=== PATIENT | male | born 1975 | race Caucasian/White ===

== ENCOUNTER → 2023-05-18 | Outpatient (CLI) | payer BC ==
--- NOTE | 2023-05-18 13:46 | US ---
EXAMINATION TYPE: US scrotum with doppler. Grayscale and color Doppler Duplex imaging performed of angie olea scrotum. DATE OF EXAM: 05/18/2023 COMPARISON: NONE CLINICAL INDICATION: Male, 48 years old with history of N50.811 RIGHT TESTICULAR PAIN; Right side juanita n. Patient states he was lifting something heavy. No swelling. EXAM MEASUREMENTS: TESTICLES: Right Testicle: 4.9 x 4.5 x 3.3 cm Left Testicle: 5.6 x 4.6 x 3.5 cm EPIDIDYMIS HEAD: Right Epididymis: 0.9 x 1.0 x 0.9 cm Left Epididymis: 0.8 x 0.9 x 0.8 cm Doppler performed to assess for testicular vascularity; good bilateral color flow and waveforms are s een. There is no evidence of testicular torsion. Presence of hydroceles: no Presence of varicoceles: left lateral IMPRESSION: Small left lateral hydrocele
== END | disposition home or self-care (01) ==
LOC: RADUSWWP 12:05
PROVIDERS: ATTEND Family Medicine
DX: N43.3 Hydrocele, unspecified (principal); N50.811 Right testicular pain
CPT/HCPCS: 76870; 93975

== ENCOUNTER → 2024-04-06 | Outpatient (CLI) | payer BC ==
--- NOTE | 2024-04-08 10:43 | CT ---
EXAMINATION TYPE: CT abdomen pelvis wo con DATE OF EXAM: 04/06/2024 COMPARISON: 05/18/23 ultrasound HISTORY: 48-year-old male abdominal pain, R10.84, Right flank pain x3 weeks. No priors CT DLP: 1225 mGycm. Automated exposure control for dose reduction was used. TECHNIQUE: Contiguous axial scanning of the abdomen and pelvis without IV contrast. Coronal and sagit aakash reconstructions performed. FINDINGS: The heart is normal size without pericardial effusion. Lung bases clear without pleural effusion. Liver borderline in size at 17.7 cm. Spleen borderline enlarged at 13.9 cm measured on axial series. Gallbladder collapsed. Adrenal glands and pancreas show no gross abnormality along for noncontrast technique. The kidneys show minimal perinephric stranding which could reflect senescent change or some underlyin g chronic kidney disease. There is no hydronephrosis on either side. No dilated small bowel, free fluid, or free air. No mesenteric or retroperitoneal lymphadenopathy. Mi ld stool morning. Normal appendix. No pericolonic inflammatory change. Mild atherosclerotic calcifications abdominal aorta. Bladder partially distended. Prostate gland normal size 3.3 cm wide. Small left-sided pelvic phleboli ths. No abnormal fluid collection in the pelvis or pelvic lymphadenopathy. Bones: Hypertrophic facet arthropathy mid to lower lumbar spine with degenerative grade 1 retrolisthe sis L3-L4 and L4-L5. Bilateral neural foraminal narrowing L3-S1 levels on both sides. IMPRESSION: 1. Borderline hepatosplenomegaly (liver 17.7 cm and spleen 13.9 cm). 2. No nephrolithiasis or hydronephrosis. [facility], , 04/08/2024 10:41 AM
== END | disposition home or self-care (01) ==
LOC: RADCTMAIN 17:20
PROVIDERS: ATTEND Family Medicine
CPT/HCPCS: 74176